=== PATIENT | male | born 1950 | race Caucasian/White ===

== ENCOUNTER → 2016-07-14 | Outpatient (REF) | payer MEDICARE, MEDICAID ==
[~2016-07-14] MED LIST: /ESOM40CA OR; /LOR25TA PO; /NITR4TASL SL; ANEX75TA PO; ASPI81TA7 PO; ATEN50TA2 PO; CIPR500T3 PO; FERRPOW60 OR; FISHCAP PO; FOLI1TAB86 PO; GABA100C PO; NAPR375T2 PO; OMEP20CA3 PO; OXYC1SOL PO; PRIL20CA PO; SULF1POW OR; TAMS0.4C PO; VITA-130 PO; VITA200015 PO; [UNRECOGNIZED DRUG - CODE] OR
== END ==
LOC: M LAB REF 13:19
PROVIDERS: ATTEND Internal Medicine Medical Oncology
DX: C64.9 Malignant neoplasm of unspecified kidney, except renal pelvis (principal)

== ENCOUNTER → 2016-09-15 | Outpatient (REF) | payer MEDICARE, MEDICAID ==
[2016-09-15 13:38] LABS: MAGNESIUM LEVEL 2.1 MG/DL (1.8-2.4); PHOSPHORUS LEVEL 3.5 MG/DL (2.5-4.9)
== END ==
LOC: M LAB REF 12:32
PROVIDERS: ATTEND Internal Medicine Medical Oncology
DX: C64.9 Malignant neoplasm of unspecified kidney, except renal pelvis (principal); Z79.899 Other long term (current) drug therapy

== ENCOUNTER → 2016-11-06 | Outpatient (REF) | payer MEDICARE, MEDICAID ==
[~2016-11-06] MED LIST changes: +AMLO10TA2 PO; +CETI10TA PO; +LASI40TA PO; +LEVO75TA4 PO; +PROC10TA PO; +ZOFR8TAB PO
[2016-11-06 14:22] LABS: INR 0.93
== END ==
LOC: M LAB REF 13:18
PROVIDERS: ATTEND Internal Medicine Medical Oncology
DX: C64.9 Malignant neoplasm of unspecified kidney, except renal pelvis (principal)

== ENCOUNTER → 2016-12-23 | Outpatient (CLI) | payer MEDICARE, MEDICAID ==
--- NOTE | 2016-12-25 05:34 | RADONC ---
RADIATION ONCOLOGY CONSULTATION NOTE DATE: 12/23/2016 CHART NUMBER: [id number]. DIAGNOSIS: Supraglottic larynx. STAGE: TIMUR, [id number]. ECOG PERFORMANCE STATUS: 1. CONSULTATION NOTE: Mr. 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 HISTORY OF PRESENT ILLNESS: The patient apparently has a long history of renal cell carcinoma dating back to at least 2012. He underwent a left nephrectomy on 09/07/2012 for a grade 4 renal cell clear mixed tumor with focal sarcomatoid areas. The tumor measured 9.5 cm and invaded into the renal capsule. It was staged as a T3a. The patient was found to have multiple pulmonary nodules including a prominent left lower lobe nodule. This underwent CT-guided biopsy on 01/06/2013 and was consistent with metastatic renal cell carcinoma. The patient was seen by Dr. Wiley and has been receiving systemic therapy with CABOMETYX. More recently, the patient began having some discomfort upon swallowing.. He was worked up and found to have a supraglottic larynx lesion. On 11/18/2016, the patient underwent biopsy and pathology revealed a moderately differentiated invasive squamous cell carcinoma involving the aryepiglottic fold. CT scan done on 12/04/2016 showed an area of ill-defined soft tissue density in the right lateral aspect of the hyoid bone. This was thought to possibly be due to erosive changes. There was a single enlarged right supraclavicular lymph node. A CT of the chest done on 12/04/2016 confirmed the left perihilar region mass. There were small areas of reticulonodular findings in the left upper and right lower lobes, which were too small to biopsy. A PET/CT scan was done on 10/22/2016. This showed hypermetabolic uptake in the right laryngeal region probably involving the overlying thyroid cartilage. Indeed if the thyroid cartilage was positive this would stage this as a T4a. The SUV value was 10.4. There were at least two hypermetabolic lymph nodes seen in the adjacent right anterior cervical chain deep to the sternocleidomastoid muscle with SUV values of 10.7. There was a small supraclavicular lymph node demonstrating increased metabolism with a SUV value of 2.3. This was thought to be significant due to the lymph node small size. There was also hypermetabolic uptake in the patients known left lower lobe lung mass. In light of the PET/CT scan findings, I believe this patient presents with a clinical stage T4aN2b malignancy. PAST MEDICAL HISTORY: The patient's past medical history is positive for metastatic renal cell carcinoma, which he is already receiving systemic therapy. In addition, the patient has cardiac problems. He has hypothyroidism. The patient has GERD, insomnia, hypertension, neuropathy, hypercholesterolemia, arthritis and varicose vein. As noted above, he has lost his left kidney. He has had wrist surgery in the past. ALLERGIES: The patient has NO KNOWN DRUG ALLERGIES. SOCIAL HISTORY: The patient had smoked half-a-pack of cigarettes per day for 10 years. He quit in 1999. He does not abuse alcohol. FAMILY HISTORY: The patient's family history is positive for a mother with BELT SEWER cancer and a brother with some type of brain tumor. REVIEW OF SYSTEMS: The patient's review of systems is positive for a tracheostomy. He has general physical limitations. He has difficulty chewing and swallowing. He has lost some weight and has decreased energy. He denies nausea, vomiting, fevers, chills, night sweats, diplopia, headaches, anxiety or depression, chest pain, shortness of breath, urinary or bowel difficulties, bone pain or neurological problems. PHYSICAL EXAMINATION: The patient is a chronically ill-appearing white male in no acute distress who is presenting with a tracheostomy. HEENT: Exam is normocephalic, atraumatic. Extraocular movements are intact. Oral cavity examination reveals him to be edentulous. There are no nodules, ulceration or evidence of disease in the oral cavity. Once again, he has a tracheostomy site, which appears free of infection. There is a palpable 2 cm lymph node in the right neck. There is no other palpable cervical, supraclavicular, infraclavicular or axillary lymphadenopathy present. His lungs are clear to auscultation and percussion. His heart has regular rate and rhythm. Laryngoscopic evaluation was deferred. IMAGING: I have personally reviewed the patient's PET scan done on 10/22/2016 showing the above-mentioned areas of hypermetabolic uptake and concern. ASSESSMENT: Clearly the patient is a candidate for external beam radiation therapy and I have so informed him. I have discussed with the patient in detail the potential benefits as well as possible acute and chronic sequelae of external beam radiation therapy. We have discussed logistics of treatment planning, simulation subsequent fractionated daily radiation treatments. I believe this patient in light of the PET scan may have a stage T4a, [id number] lesion. I will coordinate his care with Dr. Wiley, his medical oncologist. Although, our goal here clearly is to develop long-term local control. He has widely metastatic renal cell carcinoma and has been doing quite well for a significant period of time with this. The patient's left lower lung lesion may be metastatic renal cell or a primary lung, although we have a biopsy report from several years ago saying a lesion in that area was metastatic renal cell. Once we obtain local control, it may be reasonable to further pursue this and see whether or not some type of therapy to that lesion would be reasonable. I am placing this patient on our list for discussion at multidisciplinary tumor conference. We will coordinate his care with her medical oncologist as well. Thank you for allowing us to participate in the care of this very pleasant gentleman. I will keep you informed of any new developments as they occur. As always, warm regards. cc: MD Jacy Mancini MD Fayez Chahfe, MD Alejandro Rodriguez, MD MTDD
--- NOTE | 2017-02-11 07:55 | RADONC ---
RADIATION ONCOLOGY PROGRESS NOTE DATE: 02/09/2017 CHART NUMBER: [id number] Mr. Villegas is presently at a dose of 3000 cGy to his supraglottic larynx and neck and is tolerating treatments quite well at this point with no complaints related to his radiation therapy other than some difficulty swallowing. He does report that he has had a remarkable response with a drastic reduction in size of his neck mass. REVIEW OF SYSTEMS: The patient's review of systems is positive for some discomfort upon swallowing but is otherwise noncontributory. Denies nausea, vomiting, fevers, chills, night sweats, diplopia, headaches, anxiety or depression, anorexia, weight loss, visual disturbances, chest pain, urinary or bowel difficulties, bone pain, or neurological problems. PHYSICAL EXAMINATION: The patient's skin is in good condition with no evidence of moist or dry desquamation. His oral cavity shows some mucositis. The remainder of his physical exam remains largely unchanged. Mr. Villegas is tolerating treatments quite well and radiation will continue as scheduled.
== END ==
LOC: M ONCR 13:08
PROVIDERS: ATTEND Radiology Radiation Oncology
DX: C44.92 Squamous cell carcinoma of skin, unspecified (principal)

== ENCOUNTER → 2016-12-24 | Outpatient (REF) | payer MEDICARE, MEDICAID | LOC: M LAB REF 12:32 | PROVIDERS: ATTEND Internal Medicine Medical Oncology | DX: C64.9 Malignant neoplasm of unspecified kidney, except renal pelvis (principal) ==

== ENCOUNTER 2016-12-29 13:08 | Outpatient (RCR) | payer MEDICARE, MEDICAID ==
[~2016-12-29 13:08] MED LIST changes: -AMLO10TA2 PO; -CETI10TA PO; -LASI40TA PO; -LEVO75TA4 PO; -PROC10TA PO; -ZOFR8TAB PO
--- NOTE | 2016-12-29 15:27 | RADONC ---
RADIATION ONCOLOGY SIMULATION NOTE: DATE: 12/29/2016 CHART NUMBER: [id number] Mr. Villegas was taken to the CT scan for CT simulation of his head and neck field. CT was accomplished without difficulty or discomfort. Radiation treatment planning is underway and radiation treatments will begin subsequently. An immobilization device including a mask was created and will be used throughout the course of treatment. It was created without difficulty or discomfort. I was physically present throughout the course of CT simulation.
== END 2017-01-10 ==
LOC: M ONCR 13:08
PROVIDERS: ATTEND Radiology Radiation Oncology
DX: C32.1 Malignant neoplasm of supraglottis (principal); C77.0 Secondary and unspecified malignant neoplasm of lymph nodes of head, face and neck

== ENCOUNTER → 2016-12-29 | Outpatient (CLI) | payer MEDICARE, MEDICAID | LOC: M RAD 10:33 | PROVIDERS: ATTEND Radiology Radiation Oncology | DX: C76.0 Malignant neoplasm of head, face and neck (principal) ==

== ENCOUNTER → 2017-01-21 | Outpatient (REF) | payer MEDICARE, MEDICAID ==
[~2017-01-21] MED LIST changes: +AMLO10TA2 PO; +CETI10TA PO; +LASI40TA PO; +LEVO75TA4 PO; +PROC10TA PO; +ZOFR8TAB PO
[2017-01-21 14:51] LABS: CORTISOL AM 3.8 UG/DL (4.3-22.4)
[2017-01-21 15:12] LABS: FREE T4 1.06 NG/DL (0.76-1.46)
== END ==
LOC: M LAB REF 12:12
PROVIDERS: ATTEND Internal Medicine Medical Oncology
DX: C64.9 Malignant neoplasm of unspecified kidney, except renal pelvis (principal); Z79.899 Other long term (current) drug therapy

== ENCOUNTER 2017-01-22 11:30 | Emergency (ER) | payer MEDICARE, MEDICAID ==
[~2017-01-22] VITALS: Ht 175.3 cm; Wt 93.2 kg
[~2017-01-22 11:30] MED LIST changes: -AMLO10TA2 PO; -CETI10TA PO; -LASI40TA PO; -LEVO75TA4 PO; -PROC10TA PO; -ZOFR8TAB PO
[2017-01-22] MEDS ORDERED: FUROSEMIDE 100 MG/10 ML VIAL (J1940) IV ONE (12:15)
[2017-01-22 12:34] LABS: MEAN CORPUSCULAR HEMOGLOBIN 30.7 pg (27.0-33.0); MEAN CORPUSCULAR HGB CONC 31.7 g/dl (32.0-36.5); MEAN CORPUSCULAR VOLUME 96.7 fl (80.0-96.0); RED CELL DISTRIBUTION WIDTH 17.1 % (11.5-14.5); WHITE BLOOD COUNT 26.4 10^3/uL (4.0-10.0)
--- NOTE | 2017-01-22 12:44 | REP ---
Chest two views HISTORY: Weight gain Comparison: 01/03/2017 A 4.3 cm parenchymal nodule is present in the left lower lobe increased in size compared to the previous study. The right lung is clear. The heart is normal in size. The pulmonary vasculature is normal in appearance. The bony structure is intact. A tracheostomy is present. IMPRESSION: 4.3 cm left lower lobe parenchymal nodule increased in size compared to the previous study. Signed by Donell Patino MD 01/22/2017 12:35 P
[2017-01-22 13:12] LABS: ALBUMIN 2.3 GM/DL (3.2-5.2); ALBUMIN/GLOBULIN RATIO 0.68 (1.00-1.93); ALKALINE PHOSPHATASE 29 U/L (45-117); ALT/SGPT 13 U/L (12-78); ANION GAP 7 MEQ/L (8-16); AST/SGOT 13 U/L (15-37); BILIRUBIN,DIRECT < 0.1 MG/DL (0.0-0.2); BILIRUBIN,TOTAL 0.1 MG/DL (0.2-1.0); BLOOD UREA NITROGEN 46 MG/DL (7-18); CARBON DIOXIDE LEVEL 28 MEQ/L (21-32); CHLORIDE LEVEL 99 MEQ/L (98-107); CREATININE FOR GFR 1.94 MG/DL (0.70-1.30); GLOMERULAR FILTRATION RATE 36.8 (>49); GLUCOSE, FASTING 105 MG/DL (80-110); SODIUM LEVEL 134 MEQ/L (136-145); TOTAL PROTEIN 5.7 GM/DL (6.4-8.2)
[2017-01-22 13:21] LABS: POTASSIUM SERUM 5.6 MEQ/L (3.5-5.1)
[2017-01-22] MEDS ORDERED: ZOFR8TAB PO (13:47)
[2017-01-22] MEDS ORDERED: CETI10TA PO (13:47)
[2017-01-22] MEDS ORDERED: LEVO75TA4 PO (13:47)
[2017-01-22] MEDS ORDERED: PROC10TA PO (13:47)
[2017-01-22] MEDS ORDERED: AMLO10TA2 PO (13:47)
[2017-01-22] MEDS ORDERED: LASI40TA PO (14:06)
[2017-01-22 14:29] VITALS: BP 133/76
--- NOTE | 2017-01-23 07:01 | ED PDOC ---
Post-Departure Follow-Up radiology report faxed to Sharon Andres MD Jan 23, 2017 07:01
== END 2017-01-22 14:30 | disposition home or self-care (01) ==
LOC: M ED 11:30
DX: N17.9 Acute kidney failure, unspecified (principal); R60.0 Localized edema; I25.2 Old myocardial infarction; Z87.891 Personal history of nicotine dependence
CPT/HCPCS: 71020; 80048; 80076; 85027; 96374; 99283; J1940

== ENCOUNTER → 2017-01-27 | Outpatient (REF) | payer MEDICARE, MEDICAID ==
[~2017-01-27] MED LIST changes: +AMLO10TA2 PO; +CETI10TA PO; +LASI40TA PO; +LEVO75TA4 PO; +PROC10TA PO; +ZOFR8TAB PO
== END ==
LOC: M LAB REF 16:49
PROVIDERS: ATTEND Internal Medicine Nephrology
DX: N18.3 Chronic kidney disease, stage 3 (moderate) (principal); R80.9 Proteinuria, unspecified

== ENCOUNTER 2017-02-11 14:09 | Outpatient (RCR) | payer MEDICARE, MEDICAID ==
--- NOTE | 2017-02-17 16:37 | RADONC ---
RADIATION ONCOLOGY PROGRESS NOTE DATE: 02/16/2017 CHART NUMBER: [id number]. PROGRESS NOTE: Mr. Villegas is presently a dose of 4000 cGy to his head and neck and is tolerating treatments quite well at this point with no significant difficulties related to his radiation therapy. He continues to eat. He notes a marked improvement in the size of his neck mass. REVIEW OF SYSTEMS: The patient's review of systems is positive for some discomfort upon swallowing but is otherwise noncontributory. Denies nausea, vomiting, fevers, chills, night sweats, diplopia, headaches, anxiety or depression, anorexia, weight loss, visual disturbances, chest pain, urinary or bowel difficulties, bone pain, or neurological problems. PHYSICAL EXAMINATION: The patient's skin is in good condition with no evidence of moist or dry desquamation. His oral cavity shows some mild mucositis. The remainder of his physical exam remains unchanged. Mr. Villegas is tolerating treatments quite well and radiation will continue as scheduled.
--- NOTE | 2017-02-24 09:03 | RADONC ---
RADIATION ONCOLOGY PROGRESS NOTE DATE: 02/23/2017 CHART NUMBER: [id number] Mr. Villegas is thus far at a dose of 4800 cGy to his head and neck. He had been scheduled for treatment today but had some difficulty with his feeding tube. He was seen in the emergency room and did not to have this tube adjusted. He did not come back in for treatment today. We have spoken to him and he will be coming in for treatment tomorrow. He had been tolerating his treatments exceedingly well without difficulty.
--- NOTE | 2017-03-03 06:35 | RADONC ---
RADIATION ONCOLOGY PROGRESS NOTE DATE: 03/02/2017 CHART NUMBER: [id number] Mr. Villegas is presently at a dose of 5400 cGy to his head and neck and is tolerating treatments quite well at this point. He is drinking fluids but not eating solids at the present time. For the remainder of his treatment he will be utilizing his feeding tube. REVIEW OF SYSTEMS: The patient's review of systems is positive for difficulty with swallowing, but is otherwise noncontributory. He denies nausea, vomiting, fevers, chills, night sweats, diplopia, headaches, anxiety or depression, anorexia, weight loss, visual disturbances, chest pain, urinary or bowel difficulties, bone pain or neurological problems. PHYSICAL EXAMINATION: The patient's skin is in good condition with no evidence of moist or dry desquamation. The remainder of his physical exam remains unchanged. Mr. Villegas is tolerating his treatments quite well at this point and radiation will continue as scheduled.
--- NOTE | 2017-03-09 11:46 | RADONC ---
RADIATION ONCOLOGY PROGRESS NOTE DATE: 03/09/2017 CHART NUMBER: [id number] Mr. Villegas is presently at a dose of 6000 cGy to his head and neck and is tolerating treatments quite well at this point with no significant difficulties related to his radiation therapy. He reports that he is overall feeling well and having no real discomfort. The patient's review of systems is positive for continued tracheostomy and inability to speak but is otherwise largely noncontributory. He denies nausea, vomiting, fevers, chills, night sweats, diplopia, headaches, anxiety or depression, anorexia, weight loss, visual disturbances, chest pain, urinary or bowel difficulties, bone pain, or neurological problems. PHYSICAL EXAMINATION: The patient's skin is in good condition with no evidence of moist or dry desquamation. His oral cavity shows some mucositis. The remainder of his physical exam remains unchanged. Mr. Villegas is tolerating treatments quite well and radiation will continue as scheduled.
== END 2017-03-12 ==
LOC: M ONCR 14:09
PROVIDERS: ATTEND Radiology Radiation Oncology
DX: C32.1 Malignant neoplasm of supraglottis (principal); C77.0 Secondary and unspecified malignant neoplasm of lymph nodes of head, face and neck

== ENCOUNTER 2017-03-13 14:03 | Outpatient (RCR) | payer MEDICARE, MEDICAID | END 2017-04-12 | LOC: M ONCR 14:03 | DX: C32.1 Malignant neoplasm of supraglottis (principal); C77.0 Secondary and unspecified malignant neoplasm of lymph nodes of head, face and neck | CPT/HCPCS: 77386 ==

== ENCOUNTER → 2017-04-22 | Outpatient (CLI) | payer MEDICARE, MEDICAID | LOC: M ONCR 15:04 | DX: C32.1 Malignant neoplasm of supraglottis (principal); C77.0 Secondary and unspecified malignant neoplasm of lymph nodes of head, face and neck | CPT/HCPCS: G0463 ==

== ENCOUNTER → 2017-06-01 | Outpatient (REF) | payer MEDICARE, MEDICAID ==
[2017-06-01 12:18] LABS: IONIZED CALCIUM 6.2 MG/DL (4.5-5.3)
[2017-06-01 12:44] LABS: FREE T4 1.12 NG/DL (0.76-1.46)
== END ==
LOC: M LAB REF 12:07
DX: C64.9 Malignant neoplasm of unspecified kidney, except renal pelvis (principal); C76.0 Malignant neoplasm of head, face and neck
CPT/HCPCS: 84443

== ENCOUNTER → 2017-06-02 | Outpatient (REF) | payer MEDICARE, MEDICAID ==
[2017-06-02 20:31] LABS: PTH INTACT < 6.3 PG/ML (18.5-88.0)
== END ==
LOC: M LAB REF 17:13
DX: C64.9 Malignant neoplasm of unspecified kidney, except renal pelvis (principal)
CPT/HCPCS: 83970

== ENCOUNTER 2017-06-28 11:01 | Emergency (ER) | payer MEDICARE, MEDICAID ==
[2017-06-28] MEDS: predniSONE 20 MG TAB PO (12:48)
== END 2017-06-28 13:19 | disposition home or self-care (01) ==
LOC: M ED 11:01
DX: K94.23 Gastrostomy malfunction (principal); I10 Essential (primary) hypertension; I25.2 Old myocardial infarction; E78.5 Hyperlipidemia, unspecified; K21.9 Gastro-esophageal reflux disease without esophagitis; K57.92 Diverticulitis of intestine, part unspecified, without perforation or abscess without bleeding; E03.9 Hypothyroidism, unspecified; D64.9 Anemia, unspecified; Z85.528 Personal history of other malignant neoplasm of kidney; Z85.118 Personal history of other malignant neoplasm of bronchus and lung; Z79.899 Other long term (current) drug therapy; Z79.82 Long term (current) use of aspirin; Z79.52 Long term (current) use of systemic steroids
CPT/HCPCS: 99283